=== PATIENT | female | born 1960 | race Caucasian/White ===

== ENCOUNTER 2024-10-11 11:58 | Emergency (ER) | payer MEDICARE ==
[~2024-10-11] VITALS: Ht 167.6 cm; Wt 72.0 kg
[2024-10-11 12:00] VITALS: BP 124/82; TEMP 98.3; O2SAT 100
[2024-10-11 12:02] VITALS: PULSE 89; RESP 16; O2SAT 98
[2024-10-11] MEDS ORDERED: DOXY100T28 MT (13:04)
== END 2024-10-11 13:47 | disposition home or self-care (01) ==
LOC: ER 11:58
DX: J20.9 Acute bronchitis, unspecified (principal); F17.200 Nicotine dependence, unspecified, uncomplicated; I25.2 Old myocardial infarction; Z90.710 Acquired absence of both cervix and uterus
CPT/HCPCS: 71045; 99283